=== PATIENT | male | born 1990 | race African-American/Black ===

== ENCOUNTER 2020-01-03 01:16 | Emergency (ER) | payer MEDICAID ==
[~2020-01-03] VITALS: Ht 182.9 cm; Wt 81.6 kg
[~2020-01-03 01:16] MED LIST: CIPR500T4; HYDR-2598
[2020-01-03] MEDS ORDERED: MORPHINE SULF INJ 2 MG/ML SYRINGE 1ML IM ONE (05:00)
[2020-01-03] MEDS ORDERED: ONDANSETRON ODT 4 MG TAB PO ONE (05:00)
[2020-01-03 05:30] VITALS: BP 114/61
== END 2020-01-03 05:50 | disposition home or self-care (01) ==
LOC: ER 01:16
DX: S63.681A Other sprain of right thumb, initial encounter (principal); S80.212A Abrasion, left knee, initial encounter; M25.462 Effusion, left knee; J45.909 Unspecified asthma, uncomplicated; Z79.899 Other long term (current) drug therapy; V49.49XA Driver injured in collision with other motor vehicles in traffic accident, initial encounter; Y93.89 Activity, other specified; Y92.488 Other paved roadways as the place of occurrence of the external cause; Y99.8 Other external cause status
CPT/HCPCS: 73130; 73562; 96372; 99284; J2270; Q0162

== ENCOUNTER 2020-07-09 05:21 | Inpatient (IN) | payer OTHER ==
[~2020-07-09] VITALS: Ht 188 cm; Wt 73.7 kg
[2020-07-09] MEDS ORDERED: THIAMINE 100mg/ml INJ (200mg/2ml VIAL) IV ONE (05:45)
[2020-07-09] MEDS ORDERED: NALOXONE HCL 1MG/ML 2ML SYRINGE IV ONE (05:45)
[2020-07-09 07:05] LABS: Basophils # (auto) 0.1 10 ^3/uL (0-0.2); Basophils % (auto) 0.8 % (0.0-2.0); Eosinophils # (auto) 0.2 10 ^3/uL (0-0.8); Eosinophils % (auto) 3.2 % (0.0-7.0); Hematocrit 45.2 % (41.0-53.0); Hemoglobin 14.9 g/dL (13.5-17.5); Lymphocytes % (auto) 28.7 % (10.0-50.0); Mean Corpuscular Hemoglobin 28.8 pg (28.0-32.0); Mean Corpuscular Volume 87.1 fL (80.0-100.0); Monocytes # (auto) 0.6 10 ^3/uL (0-1.3); Monocytes % (auto) 8.4 % (0.0-12.0); Neutrophils # (auto) 4.1 10 ^3/uL (1.6-8.6); Neutrophils % (auto) 58.9 % (37.0-80.0); Nucleated Red Blood Cells % 0.1 %; Platelet Count (auto) 377 10^3/uL (140-450); Red Blood Cells 5.18 10^6/uL (4.5-5.90); Red Cell Distribution Width 13.6 % (11.8-14.3)
[2020-07-09 07:18] LABS: Albumin 4.6 g/dL (3.4-5.0); Anion Gap 6 (5-15); Blood Alcohol < 3.0 mg/dL (0-5); Blood Urea Nitrogen 14 mg/dL (7-18); Calcium 9.4 mg/dL (8.5-10.1); Carbon Dioxide 28 mmol/L (21-32); Chloride 105 mmol/L (98-107); Glucose 80 mg/dL (74-106); Magnesium 2.7 mg/dL (1.6-2.6); Potassium 3.8 mmol/L (3.5-5.1); Sodium 139 mmol/L (136-145)
[2020-07-09 07:19] LABS: Salicylate < 1.7 mg/dL (2.8-20.0)
[2020-07-09 07:24] LABS: Alanine Aminotransferase 33 U/L (16-61); Alkaline Phosphatase 73 U/L (45-117); Aspartate Aminotransferase 37 U/L (15-37); BUN/Creatinine Ratio 13.5; Bilirubin, Total 0.6 mg/dL (0.2-1.0); GFR African American 112 mL/min; GFR Non-African American 92 mL/min; Total Protein 9.4 g/dL (6.4-8.2)
[2020-07-09 07:25] LABS: Acetaminophen < 2.0 ug/mL (10-30)
[2020-07-09 07:32] LABS: INR 1.04 (0.9-1.15); Partial Thromboplastin Time 30.9 sec (23.0-31.2)
[2020-07-09] MEDS ORDERED: hydrALAZINE HCL 20 MG/ML VL IV PRN (13:00)
[2020-07-09] MEDS ORDERED: SODIUM CHLORIDE 0.9% 1,000 ML IV ONE (13:00)
[2020-07-09] MEDS ORDERED: MORPHINE SULF INJ 2 MG/ML SYRINGE 1ML IV PRN ×2 (13:00)
[2020-07-09] MEDS ORDERED: DOCUSATE CALCIUM 240 MG CAP PO PRN (13:00)
[2020-07-09] MEDS ORDERED: ACETAMINOPHEN 500 MG TAB PO PRN (13:00)
[2020-07-09] MEDS ORDERED: NITROGLYCERIN 0.4 MG SL TAB SL PRN (13:00)
[2020-07-09] MEDS ORDERED: ONDANSETRON HCL 4 MG/2 ML VIAL IV PRN (13:00)
[2020-07-09] MEDS: ENOXAPARIN SOD 40 MG/0.4 ML SYRINGE SC SCH (13:44)
[2020-07-09] MEDS ORDERED: HALOPERIDOL LACTATE 5 MG/ML INJ VIAL IM PRN (21:15)
[2020-07-09] MEDS ORDERED: LORazepam 2MG/ML-1ML VIAL IV PRN (21:15)
[2020-07-09 22:00] VITALS: BP 148/89
[2020-07-09] MEDS ORDERED: LORazepam 0.5 MG TAB PO PRN (22:00)
[2020-07-10 04:40] VITALS: BP 128/79
[2020-07-10 07:53] LABS: Basophils # (auto) 0 10 ^3/uL (0-0.2); Basophils % (auto) 0.7 % (0.0-2.0); Eosinophils # (auto) 0.2 10 ^3/uL (0-0.8); Eosinophils % (auto) 3.7 % (0.0-7.0); Hematocrit 44.6 % (41.0-53.0); Hemoglobin 14.8 g/dL (13.5-17.5); Lymphocytes # (auto) 1.1 10 ^3/uL (0.4-5.4); Lymphocytes % (auto) 17.6 % (10.0-50.0); Mean Corpuscular Hemoglobin 28.6 pg (28.0-32.0); Mean Corpuscular Hgb Conc. 33.2 g/dL (32.0-36.0); Mean Corpuscular Volume 86.3 fL (80.0-100.0); Monocytes # (auto) 0.6 10 ^3/uL (0-1.3); Monocytes % (auto) 9.3 % (0.0-12.0); Neutrophils # (auto) 4.3 10 ^3/uL (1.6-8.6); Neutrophils % (auto) 68.7 % (37.0-80.0); Platelet Count (auto) 348 10^3/uL (140-450); Red Blood Cells 5.17 10^6/uL (4.5-5.90); Red Cell Distribution Width 13.4 % (11.8-14.3); White Blood Cell 6.3 10^3/uL (4.4-10.8)
[2020-07-10 08:00] VITALS: BP 121/85
[2020-07-10 08:00] LABS: Potassium 3.9 mmol/L (3.5-5.1)
[2020-07-10 08:11] LABS: Albumin 3.3 g/dL (3.4-5.0); BUN/Creatinine Ratio 15.6; Bilirubin, Total 0.6 mg/dL (0.2-1.0); Calcium 8.5 mg/dL (8.5-10.1); Total Protein 6.8 g/dL (6.4-8.2)
[2020-07-10] MEDS: PANTOPRAZOLE 40 MG TAB PO SCH (10:00)
[2020-07-10] MEDS: ENOXAPARIN SOD 40 MG/0.4 ML SYRINGE SC SCH (10:00)
[2020-07-10 16:00] VITALS: BP 106/68
[2020-07-11 08:00] VITALS: BP 136/84
[2020-07-11] MEDS: ENOXAPARIN SOD 40 MG/0.4 ML SYRINGE SC SCH (09:57)
[2020-07-11] MEDS: PANTOPRAZOLE 40 MG TAB PO SCH (09:57)
[2020-07-11 13:46] LABS: Basophils # (auto) 0.1 10 ^3/uL (0-0.2); Basophils % (auto) 0.7 % (0.0-2.0); Eosinophils # (auto) 0.2 10 ^3/uL (0-0.8); Eosinophils % (auto) 3.1 % (0.0-7.0); Hematocrit 42.1 % (41.0-53.0); Hemoglobin 14.1 g/dL (13.5-17.5); Lymphocytes # (auto) 1.5 10 ^3/uL (0.4-5.4); Lymphocytes % (auto) 19.4 % (10.0-50.0); Mean Corpuscular Hemoglobin 28.6 pg (28.0-32.0); Mean Corpuscular Hgb Conc. 33.4 g/dL (32.0-36.0); Mean Corpuscular Volume 85.5 fL (80.0-100.0); Monocytes # (auto) 0.9 10 ^3/uL (0-1.3); Monocytes % (auto) 10.9 % (0.0-12.0); Neutrophils # (auto) 5.2 10 ^3/uL (1.6-8.6); Neutrophils % (auto) 65.9 % (37.0-80.0); Nucleated Red Blood Cells % 0.2 %; Platelet Count (auto) 394 10^3/uL (140-450); Red Blood Cells 4.92 10^6/uL (4.5-5.90); Red Cell Distribution Width 13.5 % (11.8-14.3); White Blood Cell 7.9 10^3/uL (4.4-10.8)
[2020-07-11 14:03] LABS: Potassium 3.8 mmol/L (3.5-5.1)
[2020-07-11 14:10] LABS: Albumin 3.1 g/dL (3.4-5.0); BUN/Creatinine Ratio 15.4; Bilirubin, Total 0.2 mg/dL (0.2-1.0); Calcium 8.6 mg/dL (8.5-10.1); Total Protein 6.8 g/dL (6.4-8.2)
[2020-07-11 22:00] VITALS: BP 139/68
[2020-07-12 05:00] VITALS: BP 131/78
[2020-07-12 06:45] LABS: Basophils # (auto) 0 10 ^3/uL (0-0.2); Basophils % (auto) 0.7 % (0.0-2.0); Eosinophils # (auto) 0.2 10 ^3/uL (0-0.8); Eosinophils % (auto) 3.7 % (0.0-7.0); Hematocrit 43.1 % (41.0-53.0); Hemoglobin 14.7 g/dL (13.5-17.5); Lymphocytes # (auto) 1.5 10 ^3/uL (0.4-5.4); Lymphocytes % (auto) 25.1 % (10.0-50.0); Mean Corpuscular Hemoglobin 29.1 pg (28.0-32.0); Mean Corpuscular Hgb Conc. 34.2 g/dL (32.0-36.0); Mean Corpuscular Volume 85.1 fL (80.0-100.0); Monocytes # (auto) 0.7 10 ^3/uL (0-1.3); Monocytes % (auto) 11.5 % (0.0-12.0); Neutrophils # (auto) 3.6 10 ^3/uL (1.6-8.6); Nucleated Red Blood Cells % 0.1 %; Platelet Count (auto) 374 10^3/uL (140-450); Red Blood Cells 5.06 10^6/uL (4.5-5.90); Red Cell Distribution Width 13.2 % (11.8-14.3); White Blood Cell 6.1 10^3/uL (4.4-10.8)
[2020-07-12 07:09] LABS: BUN/Creatinine Ratio 13.9; Calcium 8.8 mg/dL (8.5-10.1)
[2020-07-12 08:00] VITALS: BP 109/54
[2020-07-12] MEDS: PANTOPRAZOLE 40 MG TAB PO SCH (09:52)
[2020-07-12] MEDS: ENOXAPARIN SOD 40 MG/0.4 ML SYRINGE SC SCH (09:53)
[2020-07-12 16:00] VITALS: BP 113/69
[2020-07-12 22:00] VITALS: BP 131/71
[2020-07-13 05:00] VITALS: BP 127/67
[2020-07-13 06:10] LABS: Basophils # (auto) 0 10 ^3/uL (0-0.2); Basophils % (auto) 0.8 % (0.0-2.0); Eosinophils # (auto) 0.2 10 ^3/uL (0-0.8); Eosinophils % (auto) 3.6 % (0.0-7.0); Hematocrit 41.5 % (41.0-53.0); Hemoglobin 13.9 g/dL (13.5-17.5); Lymphocytes # (auto) 1.5 10 ^3/uL (0.4-5.4); Lymphocytes % (auto) 28.3 % (10.0-50.0); Mean Corpuscular Hemoglobin 28.6 pg (28.0-32.0); Mean Corpuscular Hgb Conc. 33.6 g/dL (32.0-36.0); Mean Corpuscular Volume 85.3 fL (80.0-100.0); Monocytes # (auto) 0.6 10 ^3/uL (0-1.3); Monocytes % (auto) 11.8 % (0.0-12.0); Neutrophils # (auto) 2.9 10 ^3/uL (1.6-8.6); Neutrophils % (auto) 55.5 % (37.0-80.0); Platelet Count (auto) 346 10^3/uL (140-450); Red Blood Cells 4.86 10^6/uL (4.5-5.90); Red Cell Distribution Width 13.2 % (11.8-14.3); White Blood Cell 5.3 10^3/uL (4.4-10.8)
[2020-07-13 06:39] LABS: Potassium 4.3 mmol/L (3.5-5.1)
[2020-07-13 06:49] LABS: BUN/Creatinine Ratio 16.4; Calcium 8.6 mg/dL (8.5-10.1)
[2020-07-13 08:55] VITALS: BP 136/79
[2020-07-13] MEDS: PANTOPRAZOLE 40 MG TAB PO SCH (10:36)
[2020-07-13] MEDS: ENOXAPARIN SOD 40 MG/0.4 ML SYRINGE SC SCH (10:37)
[2020-07-13 12:12] VITALS: BP 120/69
[2020-07-13 16:45] VITALS: BP 116/67
[2020-07-13 20:00] VITALS: BP 121/66
[2020-07-13 22:15] VITALS: BP 121/66
[2020-07-14 05:12] VITALS: BP 121/73
[2020-07-14 08:57] VITALS: BP 119/70
[2020-07-14] MEDS: ENOXAPARIN SOD 40 MG/0.4 ML SYRINGE SC SCH (10:00)
[2020-07-14] MEDS: PANTOPRAZOLE 40 MG TAB PO SCH (10:11)
== END 2020-07-14 12:30 | disposition left against medical advice (07) | DRG 812 ==
LOC: EDUNIT# 05:21 → ER 05:21 → EDBD 05:21 → OVERFLOW 12:55 → EAST 15:15 → TELE-EAST 21:12
PROVIDERS: ADMIT Family Medicine; ATTEND Internal Medicine Nephrology
DX: T50.991A Poisoning by other drugs, medicaments and biological substances, accidental (unintentional), initial encounter (principal); G92 Toxic encephalopathy; F20.9 Schizophrenia, unspecified; F29 Unspecified psychosis not due to a substance or known physiological condition; Z20.822 Contact with and (suspected) exposure to COVID-19; E86.0 Dehydration; F19.10 Other psychoactive substance abuse, uncomplicated; Z53.29 Procedure and treatment not carried out because of patient's decision for other reasons; F12.90 Cannabis use, unspecified, uncomplicated; R68.0 Hypothermia, not associated with low environmental temperature; Z82.49 Family history of ischemic heart disease and other diseases of the circulatory system; Z83.3 Family history of diabetes mellitus; Y92.89 Other specified places as the place of occurrence of the external cause; Z79.899 Other long term (current) drug therapy
CPT/HCPCS: 36415; 70450; 70551; 71045; 80048; 80053; 80320; 80329; 82140; 82962; 83605; 83735; 84443; 84484; 85025; 85610; 85730; 87426; 93005; 96361; 96374; 96375; G0378

== ENCOUNTER 2024-02-15 07:08 | Emergency (ER) | payer MEDICAID, OTHER ==
[~2024-02-15] VITALS: Ht 190.5 cm; Wt 70.0 kg
[2024-02-15] MEDS: ACETAMINOPHEN 325 MG TAB PO ONE (08:14)
[2024-02-15 08:17] VITALS: BP 121/71; PULSE 71; RESP 18; TEMP 98.4; O2SAT 98
--- NOTE | 2024-02-15 08:32 | ED.PDOC ---
SOB-HPI HPI Comments A 34 YEAR OLD MALE PRESENTS TO THE ED WITH CHIEF COMPLAINT OF SORE THROAT. PATIENT RELAYS THAT HE HAS BEEN EXPERIENCING A SORE THROAT WITH ASSOCIATED SYMPTOMS OF FEVER, COUGH, AND NASAL CONGESTION FOR A WEEK. PATIENT STATES HIS BROTHER STARTED TO HAVE SIMILAR SYMPTOMS TO HIM 2 DAYS AGO. PATIENT DENIES ANY N/V/D, DIZZINESS, CHEST PAIN, SOB, EAR PAIN, OR HEADACHE. Chief Complaint: Flu like Time Seen by MD: 08:28 Primary Care Provider: UNKNOWN Reviewed notes: Nurses Notes, Medications, Allergies Information Source: Patient Mode of Arrival: Ambulatory Severity: Moderate Timing: Weeks Duration: Since onset Context: At Rest PE Risk Factors: None History of: None Prehospital treatment: None Modifying Factors: Nothing Associated Signs and Symptoms: Fever, Cough, Nasal Congestion, Sore Throat If cough with SOB: Productive Past Medical History PAST MEDICAL HISTORY: Denies Surgical History: Denies all surgeries Family History Family History: Reviewed,noncontributory to illness, No family hx of Cancer, No family hx of DM, No family hx of Heart dewayne, No family hx of HTN, No family hx ofKidney dewayne, No family hx of Liver dewayne, No family hx of Lung dewayne, No family hx of Stroke Social History Smoker: Non-Smoker Alcohol: Denies ETOH Use Drugs: Denies Drug Use Lives In: Home Constitutional: reports: fever; denies: chills, diaphoresis, fatigue, malaise, sweats, weakness, others EENTM: reports: nose congestion, throat pain, throat swelling, voice changes; denies: blurred vision, double vision, ear bleeding, ear discharge, ear drainage, ear pain, ear ringing, eye pain, eye redness, hearing loss, mouth pain, mouth swelling, nasal discharge, nose bleeding, nose pain, photophobia, tearing, others Respiratory: reports: cough; denies: hemoptysis, orthopnea, SOB at rest, shortness of breath, SOB with excertion, stridor, wheezing, others Cardiovascular: denies: chest pain, dizzy spells, diaphoresis, Dyspnea on exertion, edema, irregular heart beat, left arm pain, lightheadedness, palpitations, PND, syncope, others Gastrointestinal: denies: abdomen distended, abdominal pain, blood streaked bowels, constipated, diarrhea, dysphagia, difficulty swallowing, hematemesis, melena, nausea, poor appetite, poor fluid intake, rectal bleeding, rectal pain, vomiting, others Genitourinary: denies: burning, dysuria, flank pain, frequency, hematuria, incontinence, penile discharge, penile sore, pain, testicle pain, testicle swelling, urgency, others Neurological: denies: dizziness, fainting, headache, left sided numbness, left sided weakness, numbness, paresthesia, pre-existing deficit, right sided n umbness, right sided weakness, seizure, speech problems, tingling, tremors, weakness, others Musculoskeletal: denies: back pain, gout, joint pain, joint swelling, muscle pain, muscle stiffness, neck pain, others Integumetry: denies: bruises, change in color, change in hair/nails, dryness, laceration, lesions, lumps, rash, wounds, others Allergic/Immunocompromised: denies: Difficulty Healing, Frequent Infections, Hives, Itching, others Hematologic/Lymphatic: denies: anemia, blood clots, easy bleeding, easy bruising, swollen glands, others Endocrine: denies: excessive hunger, excessive sweating, excessive thirst, excessive urination, flushing, intolerance to cold, intolerance to heat, unexplained weight gain, unexplained weight loss, others Psychiatric: denies: anxiety, bipolar disorder, depression, hopeless, panic disorder, schizophrenia, sleepless, suicidal, others All Other Systems: Reviewed and Negative Physical Exam General Appearance: No Apparent Distress, Normal HEENT: PERRL/EOMI, Pharyngeal Erythema (TONSILLAR SWELLING, NO EXUDATES. ), TMs Normal Neck: Full Range of Motion, Non-Tender, Normal, Normal Inspection Respiratory: Chest Non-Tender, Expiration, No Accessory Muscle Use, No Respiratory Distress, Rhonchi Cardiovascular: No Edema, No JVD, No Murmur, No Gallop, Normal Peripheral Pulses, Regular Rate/Rhythm Breast Exam: Deferred Gastrointestinal: No Organomegaly, Non Tender, No Pulsatile Mass, Normal Bowel Sounds, Soft Genitalia: Deferred Pelvic: Deferred Rectal: Deferred Extremities: No calf tenderness, Normal capillary refill, Normal inspection, Normal range of motion, Non-tender, No pedal edema Musculoskeletal : Apperance: Normal Neurologic: Alert, cardiac catheterization technologist II-XII nml as Tested, No Motor Deficits, Normal Affect, Normal Mood, No Sensory Deficits Cerebellar Function: Normal Reflexes: Normal Skin: Dry, Normal Color, Warm Peripheral Pulses: 2+ carotid (R), 2+ carotid (L) Lymphatic: No Adenopathy Was a procedure done? Was a procedure done?: No Differential Dx Differential Diagnosis: Bronchitis, Pneumonia, Sinusitis, Allergic Rhinitis, Pharyngitis X-Ray, Labs, Meds, VS Vital Signs Date Time Temp Pulse Resp B/P (MAP) Pulse Ox O2 Delivery O2 Flow Rate FiO2 02/15/24 08:17 98.4 71 18 121/71 (88) 98 98.4 02/15/24 08:17 71 18 98 Room Air 02/15/24 07:50 16 96 Room Air 0 02/15/24 07:50 103.1 104 16 117/65 (82) 96 Current Medications Medications (Trade) Dose Ordered Sig/Lashawn Route Start Time Stop Time Status Last Admin Acetaminophen (Tylenol Tablet) 1,000 mg ONCE ONCE PO 02/15/24 08:00 02/15/24 08:01 DC 02/15/24 08:14 X-Ray, Labs, Meds, VS Comment - I reviewed the following notes from patient's past medical encounters: 07/09/20 FOR ALOC - The following tests were ordered, and results were reviewed by me: CHEST XR - Additional information was gathered from interviewing the following independent Historian: MICKIE - I reviewed and agreed with the following test results read by other provider: CHEST XR: NO ACUTE FINDING. - I discussed treatments and results with medical personnel. TREATMENT: ROCEPHIN 1GM IM AND TYLENOL 1GM PO Time of 1ST Reevaluation: 09:20 Reevaluation 1ST: Improved Patient Education/Counseling: Diagnosis, Treatment, Need For Follow Up Family Education/Counseling: Diagnosis, Treatment, Need For Follow Up Medical Screening: No EMC Exist At This Time Departure 1 Departure Time of Disposition: 09:20 Impression: Primary Impression: Acute erythematous tonsillitis Additional Impression: Acute bronchitis Qualified Codes: J20.9 - Acute bronchitis, unspecified Disposition: HOME / SELF CARE / HOMELESS Condition: Stable Additional Instructions: F/U PCP IN 2 DAYS RECHECK. IF CONDITION BECOME WORSE, RETURN TO ED [facility]. e-Prescriptions Promethazine-Dm (Promethazine Dm 6.25-15 mg/5Ml) 1 Judi Judi 5 ML PO TID, #180 ML Prov: AMBIKA GONZALEZ 02/15/24 Ibuprofen (Ibuprofen) 600 Mg Tab 1 TAB PO QID, #30 TAB Prov: AMBIKA GONZALEZ 02/15/24 Azithromycin (Azithromycin) 500 Mg Tab 1 TAB PO DAILY, #5 TAB Prov: AMBIKA GONZALEZ 02/15/24 Discharged With: Self, Relative Critical Care Note Critical Care Time?: No Stability Stability form required: No Heart Score Heart Score: Heart Score Response (Comments) Value History N/A 0 EKG N/A 0 Age N/A 0 Risk Factors N/A 0 Troponin N/A 0 Total 0 I personally scribed for AMBIKA GONZALEZ ([email or web address]) on 02/15/24 at 08:32. Electronically submitted by Rodolfo Her ([email or web address]). AMBIKA GONZALEZ Feb 15, 2024 08:32
--- NOTE | 2024-02-15 08:50 | DVH ---
EXAM: XY CHEST TWO VIEWS ROUTINE CLINICAL HISTORY: COUGH COMPARISON: None TECHNIQUE: Frontal and lateral view of the chest was obtained FINDINGS: Lines and Tubes: None Lungs: No focal consolidation. Pleura: No effusion. No pneumothorax. Cardiomediastinal contours: Unremarkable Bones: No acute osseous abnormality. IMPRESSION: No acute cardiopulmonary disease.
[2024-02-15] MEDS ORDERED: IBUP-1454 PO (08:52)
[2024-02-15] MEDS ORDERED: PROM1SOL4 PO (08:52)
[2024-02-15] MEDS ORDERED: AZIT500T66 PO (08:52)
[2024-02-15] MEDS: cefTRIAXone SOD 1,000 MG VL IM ONE (09:06)
[2024-02-15] MEDS: LIDOCAINE 1% HCL (LOCAL ANESTH.) INJ 20ML MDV IJ ONE (09:07)
== END 2024-02-15 09:05 | disposition home or self-care (01) ==
LOC: ER 07:08
DX: J20.9 Acute bronchitis, unspecified (principal); J03.90 Acute tonsillitis, unspecified
CPT/HCPCS: 71046; 96372; 99283; J0696; J2003

== ENCOUNTER 2024-08-21 06:31 | Emergency (ER) | payer MEDICAID ==
[2024-08-21 06:31] VITALS: BP 138/84; PULSE 77; RESP 18; TEMP 98.1; O2SAT 98
[~2024-08-21 06:31] MED LIST changes: +AZIT500T66 PO; +IBUP-1454 PO; +PROM1SOL4 PO
--- NOTE | 2024-08-21 06:47 | ED.PDOC ---
General HPI Comments A 34 YEAR OLD MALE PRESENTS TO THE ED WITH COMPLAINT OF URINARY URGENCY, URINARY FREQUENCY, AND SLIGHT DISCOMFORT WHEN URINATING. PATIENT STATES THAT HE HAS NO BLOOD IN HIS URINE OR ANY PENILE DISCHARGE. DENIES ANY FLANK PAIN WELL. PATIENT REPORTS THAT THESE SYMPTOMS HAVE BEEN GOING ON FOR ABOUT 1 WEEK. PATIENT DENIES FEVER, CHILLS, SHORTNESS OF BREATH, CHEST PAIN, ABDOMINAL PAIN, NAUSEA, VOMITING, HEADACHE, OR OTHER COMPLAINTS. NO OTHER SYMPTOMS OR MODIFYING FACTORS AT THIS TIME. PATIENT IS ALERT, ORIENTED X 4, AND HAS STEADY GAIT. Time Seen by MD: 06:41 Primary Care Provider: UNKNOWN Reviewed notes: Nurses Notes, Medications, Allergies Allergies: Coded Allergies: NO KNOWN ALLERGIES (Unverified , 11/13/12) UNOBTAINABLE (Unverified , 07/09/20) Home Meds Active Scripts Phenazopyridine HCl (Phenazopyridine Hydrochlo) 200 Mg Tab, 200 MG PO TID, #6 TAB Prov:AMBIKA GONZALEZ 08/21/24 Sulfamethoxazole W/Trimethopri (Bactrim Ds Tablet) 1 Tab Tb, 1 TAB PO BID, #14 TAB Prov:AMBIKA GONZALEZ 08/21/24 Promethazine-Dm (Promethazine Dm 6.25-15 mg/5Ml) 1 Judi Judi, 5 ML PO TID, #180 ML Prov:AMBIKA GONZALEZ 02/15/24 Ibuprofen (Ibuprofen) 600 Mg Tab, 1 TAB PO QID, #30 TAB Prov:AMBIKA GONZALEZ 02/15/24 Azithromycin (Azithromycin) 500 Mg Tab, 1 TAB PO DAILY, #5 TAB Prov:AMBIKA GONZALEZ 02/15/24 Reported Medications [Hydrocodone/Ace1 Ta9] (Hydrocodone/Acetaminophen) 1 TAB TAB No Conflict Check, TAB 11/13/12 [[id number] M1] (Ciprofloxacin Hcl) 500 MG TAB No Conflict Check, MG 11/13/12 Information Source: Patient Mode of Arrival: Ambulatory Severity: Mild, Moderate Inability to void: None Timing: Days Duration: Since onset, Days Has not urinated for: Minutes Prehospital treatment: None Onset: Spontaneous Symptoms: Dysuria, Frequency, Urgency History of: Kidney stone Location: None Penile discharge: None Modifying factors: None associated signs and symptoms: Dysuria, Frequency, Urgency Past Medical History PAST MEDICAL HISTORY: Kidney Stones Surgical History: Denies all surgeries Family History Family History: Reviewed,noncontributory to illness, No family hx of Cancer, No family hx of DM, No family hx of Heart dewayne, No family hx of HTN, No family hx ofKidney dewayne, No family hx of Liver dewayne, No family hx of Lung dewayne, No family hx of Stroke Social History Smoker: Non-Smoker Alcohol: Denies ETOH Use Drugs: Denies Drug Use Lives In: Home Constitutional: denies: chills, diaphoresis, fatigue, fever, malaise, sweats, weakness, others EENTM: denies: blurred vision, double vision, ear bleeding, ear discharge, ear drainage, ear pain, ear ringing, eye pain, eye redness, hearing loss, mouth pain, mouth swelling, nasal discharge, nose bleeding, nose congestion, nose pain, photophobia, tearing, throat pain, throat swelling, voice changes, others Respiratory: denies: cough, hemoptysis, orthopnea, SOB at rest, shortness of breath, SOB with excertion, stridor, wheezing, others Cardiovascular: denies: chest pain, dizzy spells, diaphoresis, Dyspnea on exertion, edema, irregular heart beat, left arm pain, lightheadedness, palpitations, PND, syncope, others Gastrointestinal: denies: abdomen distended, abdominal pain, blood streaked bowels, constipated, diarrhea, dysphagia, difficulty swallowing, hematemesis, melena, nausea, poor appetite, poor fluid intake, rectal bleeding, rectal pain, vomiting, others Genitourinary: reports: dysuria, frequency, urgency; denies: burning, flank pain, hematuria, incontinence, penile discharge, penile sore, pain, testicle pain, testicle swelling, others Neurological: denies: dizziness, fainting, headache, left sided numbness, left sided weakness, numbness, paresthesia, pre-existing deficit, right sided numbness, right sided weakness, seizure, speech problems, tingling, tremors, weakness, others Musculoskeletal: denies: back pain, gout, joint pain, joint swelling, muscle pain, muscle stiffness, neck pain, others Integumetry: denies: bruises, change in color, change in hair/nails, dryness, laceration, lesions, lumps, rash, wounds, others Allergic/Immunocompromised: denies: Difficulty Healing, Frequent Infections, Hives, Itching, others Hematologic/Lymphatic: denies: anemia, blood clots, easy bleeding, easy bruising, swollen glands, others Endocrine: denies: excessive hunger, excessive sweating, excessive thirst, excessive urination, flushing, intolerance to cold, intolerance to heat, unexplained weight gain, unexplained weight loss, others Psychiatric: denies: anxiety, bipolar disorder, depression, hopeless, panic disorder, schizophrenia, sleepless, suicidal, others All Other Systems: Reviewed and Negative Physical Exam General Appearance: No Apparent Distress, Normal HEENT: Normal ENT Inspection, PERRL/EOMI, Pharynx Normal, TMs Normal Neck: Full Range of Motion, Non-Tender, Normal, Normal Inspection Respiratory: Chest Non-Tender, Lungs Clear, No Accessory Muscle Use, No Respiratory Distress, Normal Breath Sounds Cardiovascular: No Edema, No JVD, No Murmur, No Gallop, Normal Peripheral Pulses, Regular Rate/Rhythm Breast Exam: Deferred Gastrointestinal: No Organomegaly, Non Tender, No Pulsatile Mass, Normal Bowel Sounds, Soft, Suprapubic (PRESSURE, NO TENDERNESS AND GUARDING. ) Genitalia: Deferred Pelvic: Normal External Exam, Tender Uterus Rectal: Deferred Extremities: No calf tenderness, Normal capillary refill, Normal inspection, Normal range of motion, Non-tender, No pedal edema Musculoskeletal : Apperance: Normal Neurologic: Alert, customer strategy manager II-XII nml as Tested, No Motor Deficits, Normal Affect, Normal Mood, No Sensory Deficits Cerebellar Function: Normal Reflexes: Normal Skin: Dry, Normal Color, Warm Peripheral Pulses: 2+ carotid (R), 2+ carotid (L) Lymphatic: No Adenopathy Was a procedure done? Was a procedure done?: No Differential Diagnosis Kidney stone (Female): N/A Urinary Problem (Male): Urethritis, Urolithiasis, UTI X-Ray, Labs, Meds, VS Vital Signs Date Time Temp Pulse Resp B/P (MAP) Pulse Ox O2 Delivery O2 Flow Rate FiO2 08/21/24 06:31 98.1 77 18 138/84 (102) 98 98.1 Lab Test 08/21/24 06:40 Range/Units Urine Color Light-yellow Yellow Urine Clarity Clear Clear Urine pH 5.5 5.0-9.0 Urine Specific Warren 1.024 1.001-1.035 Urine Protein Negative Negative Urine Ketones Negative Negative Urine Blood Negative Negative /uL Urine Nitrite Negative Negative Urine Bilirubin Negative Negative Urine Urobilinogen Normal Negative mg/dL Urine Leukocyte Esterase Trace Negative /uL Urine RBC 1 0 - 3 /hpf Urine Microscopic WBC 7 H 0-3 /HPF Urine Squamous Epithelial Cells Few <5 /hpf Urine Bacteria None seen None Seen /hpf Urine Mucus Few None Seen Urine Glucose Normal Normal mg/dL PATIENT: ESME GARCIAACCT: [id number]: [id number] : 1990 LOC: ER ROOM / BED: / AGE / SEX: 34 / M ADM STATUS: REG ER SERVICE [id number] ORDERING PHYSICIAN: AMBIKA GONZALEZ PROCEDURE(s): ABPL - CT AB PEL WO CON-NO ORAL OR IV REASON: UTI SYMPTOMS, HX OF KIDNEY STONE ORDER NUMBER(s): [id number], ACCESSION NUMBER(s): [id number] Exam: CT CT AB PEL WO CON-NO ORAL OR IV History: UTI SYMPTOMS, HX OF KIDNEY STONE Comparison Study: None Technique: Multidetector spiral CT of the abdomen and pelvis was performed from lung bases to pubic symphysis. Imaging was performed without intravenous contrast. Coronal and sagittal multiplanar reformats were obtained from the axial data set by the technologist. Radiation Dose : 1. Abdomen/Pelvis: CTDIvol 9.16 mGy, DLP 563.71 mGy*cm. Findings: Evaluation of vasculature and solid organs is limited due to lack of intravenous contrast use. Lung Bases: There is a 4 mm noncalcified nodule in the lateral left lower lobe. There is at least 1-2 additional nodules measuring 4 mm. Visualized portions of the heart and pericardium are unremarkable. Liver: The liver is normal in size. No focal lesions. Gallbladder and Biliary Tree: The gallbladder is unremarkable No intrahepatic or extrahepatic biliary ductal dilatation. Spleen: Unremarkable Pancreas: The pancreas is grossly unremarkable. Adrenal Glands: Unremarkable Kidneys: Kidneys are unremarkable without calculi or hydronephrosis. GI tract: Mild gastric wall thickening. No evidence of small bowel wall thickening or abnormal dilatation to suggest bowel obstruction. The colon is unremarkable. The appendix is visualized and is normal in caliber. No surrounding inflammatory changes. Peritoneum/mesentery/retroperitoneum. No evidence of free intraperitoneal air. No ascites. No evidence of suspicious lymphadenopathy. Abdominal Wall: Unremarkable. Vasculature: The visualized abdominal aorta is normal in size and caliber. Evaluation of abdominal and pelvic vessels is limited due to lack of intravenous contrast. Urinary Bladder: Grossly unremarkable for degree of distention. Pelvic Organs: Unremarkable Musculoskeletal: No aggressive focal bony lesions, acute fractures or dislocation. IMPRESSION: 1. Mild gastric wall thickening, nonspecific and may be related to underdistention however gastritis is not excluded. 2. No evidence of intrarenal calculi or acute obstructive uropathy. ATED BY: JULY CHERY MD DICTATED DATE/TIME: 08/21/24816 SIGNED BY: JULY CHERY MD SIGNED DATE/TIME: 08/21/24816 CC: X-Ray, Labs, Meds, VS Comment EXTERNAL MEDICAL RECORDS: NONE INDEPENDENT HISTORIANS: NONE SOCIAL DETERMINANTS OF HEALTH: NONE LABS ORDERED: URINALYSIS REVIEWED AND INTERPRETED RESULTS: URINALYSIS IMAGING ORDERED: NONE TREATMENTS ORDERED: NONE PATIENT'S CASE AND RESULTS HAVE BEEN DISCUSSED WITH THE ED ATTENDING PHYSICIAN AND THEY AGREE WITH MY PLAN OF CARE. RX: SEPTRA DS AND PYRIDIUM I HAVE DISCUSSED IMAGING AND LAB RESULTS WITH THE PATIENT AND HAVE INSTRUCTED THE PATIENT TO FOLLOW UP WITH THEIR PCP IN 1-2 DAYS. THE PATIENT FULLY UNDERSTANDS THEIR RESULTS AND ARE AWARE THEY NEED TO FOLLOW UP WITH THEIR PCP FOR FURTHER EVALUATION IF THEIR SYMPTOMS PERSIST. Time of 1ST Reevaluation: 08:51 Reevaluation 1ST: Improved Patient Education/Counseling: Diagnosis, Treatment, Need For Follow Up Family Education/Counseling: Diagnosis, Treatment, Need For Follow Up Medical Screening: No EMC Exist At This Time SEPSIS Sepsis Screen Physician Orders Ct Ab Pel Wo Con-No Oral Or Iv (08/21/24 07:36) Vital Signs Date Time Temp Pulse Resp B/P (MAP) Pulse Ox O2 Delivery O2 Flow Rate FiO2 08/21/24 06:31 98.1 77 18 138/84 (102) 98 98.1 Departure 1 Departure Time of Disposition: 08:51 Impression: Primary Impression: Acute cystitis Qualified Codes: N30.00 - Acute cystitis without hematuria Disposition: 01 HOME / SELF CARE / HOMELESS Condition: Stable Additional Instructions: FOLLOW-UP WITH PCP IN 1 TO 2 DAYS. TAKE MEDICATIONS PRESCRIBED. RETURN TO ED FOR ANY NEW OR WORSENING SYMPTOMS. e-Prescriptions Phenazopyridine HCl (Phenazopyridine Hydrochlo) 200 Mg Tab 200 MG PO TID, #6 TAB Prov: AMBIKA GONZALEZ 08/21/24 Sulfamethoxazole W/Trimethopri (Bactrim Ds Tablet) 1 Tab Tb 1 TAB PO BID, #14 TAB Prov: AMBIKA GONZALEZ 08/21/24 Discharged With: Self Critical Care Note Critical Care Time?: No Stability Stability form required: No Heart Score Heart Score: Heart Score Response (Comments) Value History N/A 0 EKG N/A 0 Age N/A 0 Risk Factors N/A 0 Troponin N/A 0 Total 0 I personally scribed for AMBIKA GONZALEZ ([email or web address]) on 08/21/24 at 06:47. Electronically submitted by Wally Stanley ([email or web address]). I personally scribed for AMBIKA GONZALEZ ([email or web address]) on 08/21/24 at 08:39. Electronically submitted by Wally Stanley ([email or web address]). AMBIKA GONZALEZ Aug 21, 2024 06:47
[2024-08-21 07:33] LABS: Urine Protein, UAD Negative (Negative)
--- NOTE | 2024-08-21 08:20 | DVH ---
Exam: CT CT AB PEL WO CON-NO ORAL OR IV History: UTI SYMPTOMS, HX OF KIDNEY STONE Comparison Study: None Technique: Multidetector spiral CT of the abdomen and pelvis was performed from lung bases to pubic s ymphysis. Imaging was performed without intravenous contrast. Coronal and sagittal multiplanar reform ats were obtained from the axial data set by the technologist. Radiation Dose : 1. Abdomen/Pelvis: CTDIvol 9.16 mGy, DLP 563.71 mGy*cm. Findings: Evaluation of vasculature and solid organs is limited due to lack of intravenous contrast use. Lung Bases: There is a 4 mm noncalcified nodule in the lateral left lower lobe. There is at least 1-2 additional nodules measuring 4 mm. Visualized portions of the heart and pericardium are unremarkable . Liver: The liver is normal in size. No focal lesions. Gallbladder and Biliary Tree: The gallbladder is unremarkable No intrahepatic or extrahepatic biliar y ductal dilatation. Spleen: Unremarkable Pancreas: The pancreas is grossly unremarkable. Adrenal Glands: Unremarkable Kidneys: Kidneys are unremarkable without calculi or hydronephrosis. GI tract: Mild gastric wall thickening. No evidence of small bowel wall thickening or abnormal dilata tion to suggest bowel obstruction. The colon is unremarkable. The appendix is visualized and is leyla l in caliber. No surrounding inflammatory changes. Peritoneum/mesentery/retroperitoneum. No evidence of free intraperitoneal air. No ascites. No evidenc e of suspicious lymphadenopathy. Abdominal Wall: Unremarkable. Vasculature: The visualized abdominal aorta is normal in size and caliber. Evaluation of abdominal a nd pelvic vessels is limited due to lack of intravenous contrast. Urinary Bladder: Grossly unremarkable for degree of distention. Pelvic Organs: Unremarkable Musculoskeletal: No aggressive focal bony lesions, acute fractures or dislocation. IMPRESSION: 1. Mild gastric wall thickening, nonspecific and may be related to underdistention however gastritis is not excluded. 2. No evidence of intrarenal calculi or acute obstructive uropathy.
[2024-08-21] MEDS ORDERED: BACDST PO (08:44)
[2024-08-21] MEDS ORDERED: PHEN-922 PO (08:44)
== END 2024-08-21 06:45 | disposition home or self-care (01) ==
LOC: ER 06:31
DX: N30.00 Acute cystitis without hematuria (principal); Z87.442 Personal history of urinary calculi; Z79.899 Other long term (current) drug therapy
CPT/HCPCS: 74176; 81001; 82947; 82962